=== PATIENT | male | born 1965 | race Caucasian/White ===

== ENCOUNTER 2016-06-16 12:46 | Emergency (ER) | payer OTHER ==
[~2016-06-16] VITALS: Ht 182.9 cm; Wt 76.6 kg
[~2016-06-16 12:46] MED LIST: ASPIR-LOW81 MG PO; CATAPRES0.1 MG PO; FLEXERIL10 MG PO; LISINOPRIL30 MG PO; MOTRIN600 MG PO; MOTRIN800 MG PO; NAPROSYN500 MG PO; NICOTINE PATCH1 EAC1 TD; NORCO 5/3251 TABLET PO; PEN-VEE K,VEET500 MG PO; PERCOCET 5/31 TABLET PO; PERCOCET 7.51 TABLE1 PO; PRINIVIL10 MG PO; TYLENOL WITH C1 EACH PO
[2016-06-16 13:45] LABS: HEMATOCRIT 43.3 % (38.0-50.0); MCH 31.1 PG (29.0-34.0); MCHC 34.4 G/DL (30.0-36.0); MCV 90.4 FL (86-99); MEAN PLAT.VOLUME 11.6 uM^3 (9.0-12.4); PLATELET COUNT 216 K/uL (156-360); RBC DIS.WIDTH-CV 13.6 % (11.8-14.6); RBC DIS.WIDTH-SD 44.5 % (39-53); RED BLOOD COUNT 4.79 M/uL (4.00-5.50); WHITE BLOOD COUNT 9.1 K/uL (4.1-10.2)
[2016-06-16 13:51] LABS: CHLORIDE 109 mEq/L (99-109); POTASSIUM 4.1 mEq/L (3.7-5.4)
[2016-06-16 13:52] LABS: SODIUM 142 mEq/L (136-147)
[2016-06-16 13:53] LABS: GLUCOSE 90 mg/dL (70-99)
[2016-06-16 13:55] LABS: ANION GAP 11 MEQ/L (2-14)
[2016-06-16 13:57] LABS: GFR ESTIMATE (CALCULATED) > 59 mL/min/
[2016-06-16 13:58] LABS: UREA NITROGEN (BUN) 34 mg/dL (9-23)
[2016-06-16] MEDS ORDERED: ZOFRAN ODT4 MG PO (15:00)
[2016-06-16] MEDS ORDERED: PERCOCET 5/31 TABLET PO (15:00)
[2016-06-16] MEDS ORDERED: FLOMAX0.4 MG PO (15:00)
[2016-06-16 15:21] LABS: ADD MIUA? YES; BILIRUBIN NEGATIVE; BLOOD LARGE; COLOR YELLOW ((YELLOW)); GLUCOSE (STRIP) NEGATIVE; KETONES NEGATIVE; LEUKOCYTES NEGATIVE; NITRITE NEGATIVE; PROTEIN (STRIP) NEGATIVE; SPECIFIC GRAVITY 1.018 (1.000-1.030); UROBILINOGEN 0.2 MG/DL (0.2-1.0)
[2016-06-16 15:32] LABS: BACTERIA NONE SEEN; CASTS NONE SEEN /LPF; CRYSTALS NONE SEEN; EPITHELIAL CELLS RARE; MUCUS RARE; RED BLOOD CELLS 40-50 /HPF (0-5); UCUL ADDED? NO; WHITE BLOOD CELLS 0-5 /HPF (0-5)
[2016-06-16 15:36] VITALS: BP 155/86
== END 2016-06-16 15:37 | disposition home or self-care (01) ==
LOC: EME 12:46
DX: N20.0 Calculus of kidney (principal); Z87.442 Personal history of urinary calculi; F17.200 Nicotine dependence, unspecified, uncomplicated
CPT/HCPCS: 74176; 80048; 81003; 85027; 99281; 99284; J1885

== ENCOUNTER 2016-12-27 07:59 | Emergency (ER) | payer SELFPAY ==
[~2016-12-27] VITALS: Ht 182.9 cm; Wt 71.8 kg
[~2016-12-27 07:59] MED LIST changes: +FLOMAX0.4 MG PO; +ZOFRAN ODT4 MG PO
[2016-12-27 08:01] VITALS: BP 208/109
[2016-12-27 08:39] LABS: ADD MIUA? NO; BILIRUBIN NEGATIVE; BLOOD NEGATIVE; COLOR YELLOW ((YELLOW)); GLUCOSE (STRIP) NEGATIVE; KETONES NEGATIVE; LEUKOCYTES NEGATIVE; NITRITE NEGATIVE; PROTEIN (STRIP) NEGATIVE; UCUL ADDED? NO; UROBILINOGEN 0.2 MG/DL (0.2-1.0)
[2016-12-27 09:12] LABS: EOSINOPHIL (%) 1.4 % (0-5); EOSINOPHIL COUNT 0.1 K/uL (0-0.3); HEMATOCRIT 45.6 % (38.0-50.0); IMMATURE GRANULOCYTE COUNT 0.1 K/uL; INSTRUMENT ABS NEUTROPHIL CT 5.7 K/uL; LYMPHOCYTE COUNT 1.6 K/uL (1.0-2.8); MCHC 33.1 G/DL (30.0-36.0); MCV 90.5 FL (86-99); MEAN PLAT.VOLUME 10.9 uM^3 (9.0-12.4); MONOCYTE COUNT 0.4 K/uL (0-0.8); NEUTROPHIL (%) 72.3 % (45-76); NEUTROPHIL COUNT 5.7 K/uL (1.8-6.4); PLATELET COUNT 286 K/uL (156-360); RBC DIS.WIDTH-CV 13.2 % (11.8-14.6); RBC DIS.WIDTH-SD 43.6 % (39-53); RED BLOOD COUNT 5.04 M/uL (4.00-5.50); WHITE BLOOD COUNT 7.9 K/uL (4.1-10.2)
[2016-12-27 09:39] LABS: ANION GAP 7 MEQ/L (2-14); CHLORIDE 109 MEQ/L (99-109); SAMPLE HEMOLYSIS CHECK 0; SAMPLE ICTERIC CHECK 0; SAMPLE LIPEMIA CHECK 0; SODIUM 142 MEQ/L (136-147); TOTAL BILIRUBIN 0.4 MG/DL (0.0-1.0)
[2016-12-27 09:45] LABS: ALKALINE PHOSPHATASE 86 IU/L (3-129); GFR ESTIMATE (CALCULATED) > 59 mL/min/; GLUCOSE 101 mg/dL (70-99); UREA NITROGEN (BUN) 29 mg/dL (9-23)
== END 2016-12-27 09:36 | disposition left against medical advice (07) ==
LOC: EME 07:59
PROVIDERS: Physician Assistant
DX: R10.9 Unspecified abdominal pain (principal); Z72.89 Other problems related to lifestyle; I10 Essential (primary) hypertension; F17.200 Nicotine dependence, unspecified, uncomplicated; Z87.442 Personal history of urinary calculi
CPT/HCPCS: 80053; 81003; 85025; 99281; 99284

== ENCOUNTER 2017-06-18 13:35 | Emergency (ER) | payer SELFPAY ==
[~2017-06-18] VITALS: Ht 182.9 cm; Wt 73.5 kg
[2017-06-18 14:50] LABS: HEMATOCRIT 45.5 % (38.0-50.0); HEMOGLOBIN 15.7 G/DL (12.5-16.6); MCH 31.5 PG (29.0-34.0); MCHC 34.5 G/DL (30.0-36.0); MCV 91.2 FL (86-99); PLATELET COUNT 246 K/uL (156-360); RBC DIS.WIDTH-CV 13.9 % (11.8-14.6); RED BLOOD COUNT 4.99 M/uL (4.00-5.50); WHITE BLOOD COUNT 9.1 K/uL (4.1-10.2)
[2017-06-18 15:00] LABS: CHLORIDE 106 mEq/L (99-109); SODIUM 141 mEq/L (136-147)
[2017-06-18 15:02] LABS: GLUCOSE 93 mg/dL (70-99)
[2017-06-18 15:06] LABS: CREATININE 0.9 mg/dL (0.6-1.3); GFR ESTIMATE (CALCULATED) > 59 mL/min/ (58.99-99999)
[2017-06-18 15:07] LABS: UREA NITROGEN (BUN) 17 mg/dL (9-23)
[2017-06-18 15:18] LABS: APPEARANCE CLEAR ((CLEAR)); BILIRUBIN NEGATIVE; BLOOD SMALL; COLOR YELLOW ((YELLOW)); GLUCOSE (STRIP) NEGATIVE; KETONES NEGATIVE; LEUKOCYTES NEGATIVE; NITRITE NEGATIVE; PROTEIN (STRIP) 30; SPECIFIC GRAVITY 1.013 (1.000-1.030); UROBILINOGEN 0.2 MG/DL (0.2-1.0)
[2017-06-18 15:25] LABS: BACTERIA NONE SEEN /HPF; EPITHELIAL CELLS NONE SEEN /HPF; MUCUS TRACE /LPF; UCUL ADDED? NO; WHITE BLOOD CELLS 0-5 /HPF (0-5)
[2017-06-18] MEDS ORDERED: PERCOCET 5/31 TABLET PO (17:08)
[2017-06-18 18:30] VITALS: BP 197/118
== END 2017-06-18 18:31 | disposition home or self-care (01) ==
LOC: EME 13:35
DX: N20.0 Calculus of kidney (principal); I10 Essential (primary) hypertension; Z87.442 Personal history of urinary calculi; F17.200 Nicotine dependence, unspecified, uncomplicated
CPT/HCPCS: 80048; 81003; 85027; 99281; 99284; J1885; J2270

== ENCOUNTER 2017-11-20 15:06 | Emergency (ER) | payer OTHER ==
[~2017-11-20] VITALS: Ht 182.9 cm; Wt 75.0 kg
[2017-11-20] MEDS ORDERED: PERCOCET 5/31 TABLET PO (16:15)
[2017-11-20 16:35] VITALS: BP 167/89
== END 2017-11-20 16:35 | disposition home or self-care (01) ==
LOC: EME 15:06
DX: S43.401A Unspecified sprain of right shoulder joint, initial encounter (principal); X50.9XXA Other and unspecified overexertion or strenuous movements or postures, initial encounter; Y93.H9 Activity, other involving exterior property and land maintenance, building and construction
CPT/HCPCS: 73030; 99281; 99284; J1100